=== PATIENT | female | born 1980 ===

== ENCOUNTER 2019-04-23 16:08 | Emergency (ER) | payer OTHER ==
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
[2019-04-23 18:16] VITALS: BP 109/62
== END 2019-04-23 18:13 | disposition home or self-care (01) ==
LOC: ED 16:08
DX: S09.90XA Unspecified injury of head, initial encounter (principal); R11.0 Nausea; R51 Headache; W23.0XXA Caught, crushed, jammed, or pinched between moving objects, initial encounter; Y92.9 Unspecified place or not applicable
CPT/HCPCS: 99282